=== PATIENT | male | born 1970 | race Caucasian/White ===

== ENCOUNTER → 2025-03-10 | Outpatient (CLI) | payer OTHER ==
[~2025-03-10] MED LIST: LEXISCAN IV ONE
[2025-03-10] MEDS: LEXISCAN IV ONE (09:13)
== END | disposition home or self-care (01) ==
LOC: RAD 03-06 09:40
PROVIDERS: ATTEND Internal Medicine
DX: I20.0 Unstable angina (principal); R07.9 Chest pain, unspecified
CPT/HCPCS: 78452; 93017; J2785; A9500

== ENCOUNTER 2025-04-30 11:55 | Day surgery (SDC) | payer OTHER ==
[2025-04-28 15:01] VITALS: BP 122/70; PULSE 53; RESP 18; TEMP 97.5; O2SAT 96
[2025-04-28 15:58] LABS: BASOPHIL # 0.1 10^3/uL (0.0-0.1); EOSINOPHIL # 0.5 10^3/uL (0.0-0.2); EOSINOPHIL % 7.3 % (0.0-5.0); HEMATOCRIT(ML) 42.2 % (37.0-53.0); HEMOGLOBIN 14.2 g/dL (13.9-16.3); LYMPHOCYTES % 31.7 % (24.0-44.0); MEAN CORP HGB 30.9 pg (26-34); MEAN CORP HGB CONCENTRATION 33.6 g/dL (33-36.5); MEAN CORP VOLUME 91.9 fL (78-100); MONOCYTES # 0.5 10^3/uL (0.3-0.8); MONOCYTES % 7.5 % (5.0-12.0); NEUTROPHIL # 3.3 10^3/uL (1.8-7.7); NEUTROPHILS % 52.5 % (41.0-85.0); PLATELET COUNT 264 10^3/uL (150-400); RED BLOOD CELL 4.59 10^6/uL (4.50-5.90); RED CELL DISTRIBUTION WIDTH 12.1 % (11.5-14.5); WHITE BLOOD CELL 6.3 10^3/uL (4.5-11.0)
[2025-04-28 16:08] LABS: +ADD MANUAL DIFF(NO CHRG) NO
[2025-04-28 16:14] LABS: ANION GAP 11.1; BUN/CREATININE RATIO 14.41 (10.0-20.0); CALCIUM 8.9 mg/dL (8.4-10.5); CARBON DIOXIDE 29.7 mmol/L (20.0-32); CREATININE SERUM 1.11 mg/dL (0.59-1.40); EST GFR, NON-AA 69.3 (>/=60); POTASSIUM 3.8 mmol/L (3.6-5.2)
[2025-04-28 16:25] LABS: PROTHROMBIN PROTIME 9.9 SEC (9.3-11.6)
[~2025-04-30] VITALS: Ht 182.9 cm; Wt 106.6 kg
[2025-04-30] VITALS (7 sets, daily range): BP systolic 128–148; BP diastolic 65–85; PULSE 44–50; RESP 16–18; TEMP 97.1–98.2; O2SAT 93–96
[~2025-04-30 11:55] MED LIST changes: +CLON0.1T PO; -LEXISCAN IV ONE; +NS 1000ML 1,000 ML ONE
[2025-04-30] MEDS: NS 1000ML 1,000 ML IV ONE (12:05)
[2025-04-30] MEDS ORDERED: VERSED ONE (13:09)
[2025-04-30] MEDS ORDERED: HEPARIN ONE (13:09)
[2025-04-30] MEDS ORDERED: SUBLIMAZE 100MCG/2ML ONE (13:09)
== END 2025-04-30 13:00 | disposition home or self-care (01) ==
LOC: SDC 11:55
PROVIDERS: ATTEND Internal Medicine
DX: R94.39 Abnormal result of other cardiovascular function study (principal); I20.0 Unstable angina; I10 Essential (primary) hypertension; E78.5 Hyperlipidemia, unspecified; Z98.890 Other specified postprocedural states; Z82.49 Family history of ischemic heart disease and other diseases of the circulatory system; Z88.1 Allergy status to other antibiotic agents; Z87.891 Personal history of nicotine dependence; Z79.899 Other long term (current) drug therapy
CPT/HCPCS: 85025; 36415; 80048; 85610; 93005; 93458; 99152; J7030; J1644 ×2; C1894 ×2; A6258 ×2; C1887; J2250; J3010; A4618; E0617; C1769; C1766; Q9967; 76937

== ENCOUNTER → 2025-05-06 | Outpatient (CLI) | payer OTHER ==
[~2025-05-06] MED LIST changes: -NS 1000ML 1,000 ML ONE
== END | disposition home or self-care (01) ==
LOC: RAD 09:07
PROVIDERS: ATTEND Internal Medicine
DX: I71.21 Aneurysm of the ascending aorta, without rupture (principal)
CPT/HCPCS: 71275; Q9965

== ENCOUNTER → 2025-09-10 | Outpatient (CLI) | payer OTHER | END | disposition home or self-care (01) | LOC: RAD 13:13 | DX: I10 Essential (primary) hypertension (principal); I71.21 Aneurysm of the ascending aorta, without rupture; R06.02 Shortness of breath | CPT/HCPCS: 93306 ==